=== PATIENT | female | born 1960 | race Caucasian/White ===

== ENCOUNTER 2018-04-05 15:01 | Observation (INO) | payer OTHER ==
[~2018-04-05] VITALS: Ht 160 cm; Wt 69.4 kg
[~2018-04-05 15:01] MED LIST: KEFLEX500 MG PO; LEVOTHYROXINE88 MCG PO
--- NOTE | 2018-04-05 20:14 | NUR ---
04/05/182013 Sondra Ramirez 2005 PATIENT ARRIVES TO PACU SLEEPING, AWAKENS WITH VERBAL STIMULI. RESP EVEN AND UNLABORED, MASK AT 10 LITERS, DECREASED TO 6 LITERS, SATS 99%. 2013 PATIENT AWAKE OFF/ON, TALKING WITH [place] PAIN OR NAUSEA. MASK OFF, 97% ON ROOM AIR. BACK TO SLEEP.
--- NOTE | 2018-04-05 21:00 | NUR ---
PATIENT ARRIVED FROM PACU AT 2019 VIA STRETCHER WITH ARELY JACKSON TO GIVE REPORT. PATIENT HAS BEEN PAIN FREE. CMS TO ALL EXTREMETIES WNL. 3 ABD LAP APPY SITES WITH 2X2 DRESINGS COVERED WITH TEGADERM. LOWER ABD SITE HAS SMALL AMOUNT OF RED DRAINAGE ON IT THE OTHER 2 SITES ARE CDI. BOWEL TONES ACTIVE AND LUNGS ARE CLEAR. SCD'S APPLIED TO BOTH LOWER LEGS AND LR IS RUNNING AT 125MLS HR AND IV FLUSHES WELL.
--- NOTE | 2018-04-05 21:30 | NUR ---
PATIENT IS STILL PAIN FREE ANDAMBULATED TO THE BATHROOM WITH 1PSBA. PATIENT VOIDED 750MLS OF CLEAR LIGHT YELLOW URINE AND AMBULATED BACK TO BED WITHOUT DIFFICULTY. PATIENT'S AND DAUGHTER ARE AT BEDSIDE. CALL LIGHT IN REACH.
--- NOTE | 2018-04-05 23:30 | NUR ---
PATIENT WAS RESTING QUIETLY WITH EYES CLOSED. PATIENT VS REMAIN STABLE AND PATIENT IS PAIN FREE OTHER THAN BEING A LITTLE TENDER TO ABD PALPATION. PATIENT HAS BEEN TOLERATING ICE CHIPS/WATER/JELLO WITHOUT ANY PROBLEMS. CALL LIGHT IN REACH.
--- NOTE | 2018-04-06 00:57 | NUR ---
UP TO BRP, VOIDED, QS CLEAR YELLOW URINE, NO C/O PAIN, BACK TO BED, SCDS AND CONT PULSE OX IN PLACE
--- NOTE | 2018-04-06 01:30 | NUR ---
PATIENT UP TO THE BATHROOM AND AFTER RETURNING TO BED C/O 02/28 ABD PAIN. 1 PO NORCO GIVEN. PATIENT GOING TO TRY AND GO BACK TO SLEEP. CALL LIGHT IN REACH.
--- NOTE | 2018-04-06 03:35 | NUR ---
PATIENT RESTING QUIETLY SUPINE. EYES CLOSED AND RESPIRATIONS EVEN AND REGULAR. LIGHT SNORING. O2 SAT 93% ON RA AND HR PER SAT MONITOR 66BPM. CALL LIGHT IN REACH.
--- NOTE | 2018-04-06 07:16 | NUR ---
PATIENT HAS DONE WELL THROUGH THE NIGHT ONLY REQUIRING 1 NORCO FOR 5/10 ABD PAIN AFTER WALKING TO THE RESTROOM. PATIENT HAS BEEN UP TO THE RESTROOM X2 WITHOUT ANY DIFFICULTY, TAKING PO FLUIDS, JELLO, AND PUDDING. PATIENT'S VS HAVE BEEN STABLE, NO FEVER, LUNGS CLEAR, BOWEL TONES ACTIVE. DR. LEAHY IS HERE TO DISCHARGE THE PATIENT AND PATIENT'S IS AT BEDSIDE. REPORT GIVEN TO ARELY BABIN. PATIENT'S BREAKFAST IS ON THE WAY.
--- NOTE | 2018-04-06 07:30 | NUR ---
ROUNDED WITH DR. LEAHY FOR DISCHARGE INSTRUCTIONS
[2018-04-06] MEDS ORDERED: NORCO 10-325 T1 EACH PO (07:41)
--- NOTE | 2018-04-06 08:24 | NUR ---
PATIENT TOLERATED BREAKFAST WELL WITH NO NAUSEA. EATING ABOUT 75 PERCENT OF BREAKFAST. PATIENT IS IND WALKING TO BR. REQUESTING 1 TAB NORCO FOR PAIN. PATIENT AGREED TO AMBULATE IN [place] IN 15 MINUTES.
--- NOTE | 2018-04-06 09:07 | EKG ---
[facility] [address] [facility] [place] [address] Signed Normal sinus rhythm Nonspecific ST abnormality Abnormal ECG No previous ECGs available Confirmed by YEIMY NICHOLAS MD ([id number]) on 04/06/2018 9:07:20 AM Electronically Signed By: YEIMY NICHOLAS MD 04/06/18 0907 PATIENT NAME: SANGEETA PARK Electrocardiogram DATE OF : 60 PHYSICIAN: YEIMY NICHOLAS MD REPORT #: [id number] REPORT IS CONFIDENTIAL AND NOT TO BE RELEASED WITHOUT AUTHORIZATION
--- NOTE | 2018-04-08 11:27 | DS ---
[facility] [address] [place], [place] [address] Signed ADMISSION DATE: 04/05/2018 DISCHARGE DATE: 04/06/2018 HISTORY OF PRESENT ILLNESS: The patient is a 57-year-old white female with a 2-day history of abdominal pain. Several hours prior to admission she started complaining of more severe pain, and tenderness in the right lower quadrant of the abdomen. She was then brought to the emergency department where studies revealed evidence of suggest acute appendicitis by CAT scan, and by physical examination[place] [id number] with an elevated neutrophil. PHYSICAL EXAMINATION: GENERAL: Revealed a well-developed, well-nourished female in mild distress, complaining of severe pain in the right lower quadrant of the abdomen. ABDOMEN: Pertinent abdominal examination revealed a soft abdomen with severe tenderness, and mild rebound in the right lower quadrant of the abdomen. The rest of the physical examination was unremarkable. The patient was started on Zosyn 3.375 g preoperatively. The patient was then brought to the operating room theater where laparoscopic appendectomy was performed revealing evidence of severely inflamed appendicitis, fairly long with gangrenous area at the tip of the appendix. The patient tolerated the procedure very well, and postoperatively continued to do well requiring only one p.o. [place] medication. She was continued on Zosyn for three more doses. On 04/06/2018, the patient continued to do well, tolerated her breakfast. The abdomen is soft, with slightly hyperactive bowel sounds. The dressing is intact. The patient will be discharged on [place] 325/10, 1 or 2 p.o. every 4 to 6 hours for pain, and she will be followed by Dr. Leonard in one week. FINAL DIAGNOSIS: Appendicitis acute. PROCEDURE PERFORMED: Laparoscopic appendectomy. Laura Leahy MD Electronically Signed By: LAURA LEAHY MD 04/08/18 1127 PATIENT NAME: SANGEETA PARK Carmella DISCHARGE SUMMARY DATE OF : 60 REPORT #: [id number] PHYSICIAN: LAURA LEAHY MD PCP: NO PRIMARY CARE PHYSICIAN REPORT IS CONFIDENTIAL AND NOT TO BE RELEASED WITHOUT AUTHORIZATION [address] [place] [address] Signed [facility] /[id number] Copies: ~ Electronically Signed By: LAURA LEAHY MD 04/08/18 1127 PATIENT NAME: VIVIANSANGEETA DISCHARGE SUMMARY DATE OF : 60 REPORT #: [id number] PHYSICIAN: LAURA LEAHY MD PCP: NO PRIMARY CARE PHYSICIAN REPORT IS CONFIDENTIAL AND NOT TO BE RELEASED WITHOUT AUTHORIZATION
--- NOTE | 2018-04-08 11:36 | HP ---
[facility] [address] [place], [place] [address] Signed ADMISSION DATE: 04/05/2018 CHIEF COMPLAINT: Severe right lower quadrant abdominal pain and tenderness. HISTORY OF PRESENT ILLNESS: The patient stated that 2 days prior to admission she started complaining of vague abdominal pain, thinking that she probably had flu, however the condition did not improve. The following day, she continued to have more or less constant pain becoming more generalized and today the pain localized to the right lower quadrant of the abdomen with tenderness. She had nausea, but no vomiting. Does not have any other symptoms except she felt sweaty and warm, but not sure whether she had fever. PAST MEDICAL HISTORY: The patient has hypothyroidism and on medication in the form of levothyroxine sodium 100 mcg p.o. daily. ALLERGIES: No known allergy. PAST SURGICAL HISTORY: None. SOCIAL HISTORY: Former smoker. REVIEW OF SYSTEMS: 10-system review was conducted and was negative other than what was mentioned involved in the HPI. PHYSICAL EXAMINATION: VITAL SIGNS: Temperature 98.7, pulse 62 per minute, respirations 14, blood pressure 127/64. GENERAL CONDITION: Well developed, well nourished, in mild distress complaining of pain and tenderness in the right lower quadrant of the abdomen. HEAD, EYES, EAR, NOSE, AND THROAT: Exam is normal. No scleral icterus. Mucous membranes are noted to be moist. NECK: No abnormal mass palpated. No rigidity. CHEST: Clear breath sounds. HEART: Regular sinus rhythm. No murmur appreciated. Electronically Signed By: LAURA PETERSEN MD 04/08/18 1136 PATIENT NAME: SANGEETA PARK HISTORY AND PHYSICAL DATE OF : 60 REPORT #: [id number] PHYSICIAN: LAURA PETERSEN MD PCP: NO PRIMARY CARE PHYSICIAN REPORT IS CONFIDENTIAL AND NOT TO BE RELEASED WITHOUT AUTHORIZATION [facility] [address] [place] [id number] Signed LUNGS: Clear to auscultation. ABDOMEN: Soft, presence of severe tenderness with mild rebound in right lower quadrant of the abdomen. Bowel sounds positive. No rigidity. LABORATORY DATA: Elevated white cell of over 11,000 and neutrophils of over 80%. CAT scan revealed evidence suggestive of acute appendicitis. ASSESSMENT AND PLAN: A 57-year-old white female presented with significant tenderness in the right lower quadrant of the abdomen with rebound. Laboratory data revealed elevated white count with elevated neutrophils and a CAT scan revealing evidence suggestive of acute appendicitis. With the diagnosis of acute appendicitis, plan is to proceed with laparoscopic appendectomy, possibly open. The indication, risks involved, possible complication was discussed with the patient and her who agreed with the plan. Laura Petersen MD [facility]L /[id number] Copies: ~ Electronically Signed By: LAURA PETERSEN MD 04/08/18 1136 PATIENT NAME: SANGEETA PARK HISTORY AND PHYSICAL DATE OF : 60 REPORT #: [id number] PHYSICIAN: LAURA PETERSEN MD PCP: NO PRIMARY CARE PHYSICIAN REPORT IS CONFIDENTIAL AND NOT TO BE RELEASED WITHOUT AUTHORIZATION
--- NOTE | 2018-04-08 11:36 | OR ---
[facility] [address] [place] [address] Signed DATE OF OPERATION: 04/05/2018 SURGEON: Laura Leahy MD PREOPERATIVE DIAGNOSIS: Appendicitis, acute. POSTOPERATIVE DIAGNOSIS: Appendicitis, acute. OPERATIVE PROCEDURE: Laparoscopic appendectomy. ANESTHESIA: General endotracheal. ANESTHESIOLOGIST: Gurpreet Sargent CRNA COLOR RECEIVER: La Sims RN CIRCULATING NURSE: Laura Jo RN. SPECIMEN REMOVED: Inflamed appendix. DESCRIPTION OF PROCEDURE: Under satisfactory general anesthesia and the patient in the supine position, a Doherty catheter was inserted. The abdomen was then prepped and draped in the usual sterile fashion. A time-out was called to identify the patient correctly and the type of procedure to be performed. The abdominal cavity was then insufflated through a Micaela trocar inserted through a small incision in the umbilicus and anchored to the fascia using 0 Vicryl. Following satisfactory insufflation, the patient was placed in a reverse Trendelenburg position and tilted to the left side. Using the video camera, suprapubic placement of a 12 mm trocar was performed through a small transverse incision. A 5 mm trocar was then inserted in the right lower quadrant of the abdomen at McBurney's point area. Exploration revealed an acutely inflamed long appendix. This was also adherent Electronically Signed By: LAURA LEAHY MD 04/08/18 1136 PATIENT NAME: SANGEETA PARK OPERATIVE REPORT DATE OF : 60 REPORT #: [id number] PHYSICIAN: LAURA LEAHY MD PCP: NO PRIMARY CARE PHYSICIAN REPORT IS CONFIDENTIAL AND NOT TO BE RELEASED WITHOUT AUTHORIZATION [facility] [address] [place], [place] [address] Signed to the right fallopian tube and this was easily . The base of the appendix was then identified. A window was then created and using an Endo stapler, the base of the appendix was stapled and amputated at the same time. The mesoappendix was then dissected and this was transected using an Endo stapler. The entire area was irrigated with normal saline. The specimen then was placed in Endobag and pulled out through the umbilical incision. The Micaela trocar was then re-inserted. Laparoscopic exploration was then performed revealing no other pathology in the abdominal cavity. Again, the pelvic area and right lower quadrant of the abdomen were copiously irrigated with normal saline. The fascia in the suprapubic area was closed with 0 vicryl simple interrupted with the aid of an Endo Close, after removal of 12 mm trocar. The fascia in the umbilicus was approximated with [id number] 0 Vicryl. All the site of incision was then infiltrated with 0.25% Marcaine with epinephrine. The skin was approximated using 4-0 Monocryl subcuticular interrupted. Steri-Strips applied on the suprapubic incision in the right lower quadrant. Antibiotic ointment applied in the umbilicus. Sterile dressings were applied. The patient tolerated the procedure well, was brought out of the operating room, and taken to the PACU in satisfactory condition. Laura Leahy MD [facility] /[id number] Copies: ~ Electronically Signed By: LAURA LEAHY MD 04/08/18 1136 PATIENT NAME: VIVIANSANGEETA OPERATIVE REPORT DATE OF : 60 REPORT #: [id number] PHYSICIAN: LAURA LEAHY MD PCP: NO PRIMARY CARE PHYSICIAN REPORT IS CONFIDENTIAL AND NOT TO BE RELEASED WITHOUT AUTHORIZATION
== END 2018-04-06 09:15 | disposition home or self-care (01) ==
LOC: ED 15:01 → MS 15:02
PROVIDERS: ADMIT Surgery
PROC: 0DTJ4ZZ Resection of Appendix, Percutaneous Endoscopic Approach (ICD-10-PCS; principal; 2018-04-05 18:58)
DX: K35.3 Acute appendicitis with localized peritonitis (principal); E03.9 Hypothyroidism, unspecified; Z79.899 Other long term (current) drug therapy; Z87.891 Personal history of nicotine dependence
CPT/HCPCS: 00840; 36415; 74177; 80048; 80053; 81001; 85025; 93005; 93010; 96361; 96374; 96375; 99285; J0330; J1100; J1885; J2250; J2270; J2405; J2543; J2704; J2765; J3010; J7030; J7120; Q9967